=== PATIENT | female | born 1930 | race Caucasian/White ===

== ENCOUNTER 2018-09-26 09:10 | Emergency (ER) | payer MEDICARE, OTHER ==
--- NOTE | 2018-09-26 10:16 | EDM.PDOC ---
ED HPI GENERAL MEDICAL PROBLEM - General Chief Complaint: General Stated Complaint: Headache Time Seen by Provider: 09/26/18 10:10 Source of Information: Reports: Patient History Limitations: Reports: No Limitations - History of Present Illness INITIAL COMMENTS - FREE TEXT/NARRATIVE: Patient is a 8-year-old female who presents to the emergency department this morning with a complaint of migraine headache. Patient states she awoke this morning with no issues, proximally one hour after awakening, developed mild dizziness and a migraine headache. Patient does have a strong history of migraine headaches to the extent of having left upper extremity numbness and weakness. The patient's go to remedy is a shot of cyndi. This morning the patient took a shot of cyndi and had complete resolution of symptoms. Patient did contact her [id number] to let her know about the dizziness and headache and the [id number] decided to have her present to the ER. Upon presentation, patient states that migraine headache is gone, has no dizziness, no vision changes, no nausea, vomiting, or any syncopal episode. Onset: Today Onset Date: 09/26/18 Onset Time: 08:00 Duration: Minutes: Location: Reports: Head Quality: Reports: Pressure, Same as Previous Episode Severity: Mild Improves with: Reports: Other (Cyndi) Worsens with: Reports: None Context: Denies: Trauma Associated Symptoms: Reports: No Other Symptoms. Denies: Chest Pain, Cough, Diaphoresis, Fever/Chills, Nausea/Vomiting, Shortness of Breath, Syncope - Related Data Allergies Allergy/AdvReac Type Severity Reaction Status Date / Time No Known Allergies Allergy Verified 09/26/18 09:32 Home Meds: Home Meds Aspirin [Ecotrin EC] 325 mg PO DAILY PRN 06/10/17 [History] Loperamide HCl [Imodium A-D] 2 mg PO ASDIRECTED PRN 06/10/17 [History] Past Medical History HEENT History: Reports: Cataract Cardiovascular History: Reports: Other (See Below) Other Cardiovascular History: states irregular heart rhythm Gastrointestinal History: Reports: None Genitourinary History: Reports: None 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: , 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 Musculoskeletal History: Reports: Arthritis Neurological History: Reports: Migraines Psychiatric History: Reports: None Hematologic History: Reports: Blood Transfusion(s) Dermatologic History: Reports: None - Infectious Disease History Infectious Disease History: Reports: Chicken Pox, Measles, Mumps - Past Surgical History HEENT Surgical History: Reports: Cataract Surgery Cardiovascular Surgical History: Reports: None GI Surgical History: Reports: None Female Surgical History: Reports: None Neurological Surgical History: Reports: None Musculoskeletal Surgical History: Reports: None Dermatological Surgical History: Reports: None Social & Family History - Tobacco Use Smoking Status *Q: Never Smoker Second Hand Smoke Exposure: Yes - Caffeine Use Caffeine Use: Reports: Coffee, Soda, Tea - Alcohol Use Days Per Week of Alcohol Use: 7 Number of Drinks Per Day: 1 Total Drinks Per Week: 7 - Recreational Drug Use Recreational Drug Use: No ED ROS GENERAL - Review of Systems Review Of Systems: ROS reveals no pertinent complaints other than HPI. Constitutional: Reports: No Symptoms HEENT: Reports: No Symptoms Respiratory: Reports: No Symptoms Cardiovascular: Reports: No Symptoms Endocrine: Reports: No Symptoms GI/Abdominal: Reports: No Symptoms : Reports: No Symptoms Musculoskeletal: Reports: No Symptoms Skin: Reports: No Symptoms Neurological: Reports: Dizziness, Headache Psychiatric: Reports: No Symptoms Hematologic/Lymphatic: Reports: No Symptoms Immunologic: Reports: No Symptoms ED EXAM, GENERAL - Physical Exam Exam: See Below Exam Limited By: No Limitations General Appearance: Alert, WD/WN, No Apparent Distress Eye Exam: Bilateral Eye: Normal Inspection Ears: Normal External Exam, Other (Left ear canal without cerumen, TM normal. Right canal cerumen impaction. Unable to visualize TM) Ear Exam: Left Ear: Canal Normal Nose: Normal Inspection, Normal Mucosa, No Blood Throat/Mouth: Normal Inspection, Normal Oropharynx, No Airway Compromise Head: Atraumatic, Normocephalic Neck: Normal Inspection, Supple, Non-Tender, Full Range of Motion. No: Lymphadenopathy (L), Lymphadenopathy (R) Respiratory/Chest: No Respiratory Distress, Lungs Clear, Normal Breath Sounds, No Accessory Muscle Use, Chest Non-Tender Cardiovascular: Regular Rate, Rhythm, No Murmur GI/Abdominal: Normal Bowel Sounds, Soft, Non-Tender Back Exam: Normal Inspection Extremities: Normal Inspection, No Pedal Edema Neurological: Alert, Oriented, CN II-XII Intact, Normal Cognition, No Motor/ Sensory Deficits Psychiatric: Normal Affect, Normal Mood Skin Exam: Warm, Dry, Intact, Normal Color, No Rash Lymphatic: No Adenopathy Course - Vital Signs Last Recorded V/S: Last Vital Signs Temp 98.0 F 07/01/19 09:27 Pulse 94 09/26/18 09:27 Resp 18 09/26/18 09:27 BP 213/101 H 09/26/18 09:27 Pulse Ox 94 L 09/26/18 09:27 - Re-Assessments/Exams Free Text/Narrative Re-Assessment/Exam: 09/26/18 10:19 Patient afebrile, vital signs stable, other than blood pressure 184/80. Patient currently not on any antihypertensive meds. Patient will follow-up tomorrow with Annabel. Discussed situation. In depth with [id number] and granddaughter. 09/26/18 10:26 Departure - Departure Time of Disposition: 10:27 Disposition: Home, Self-Care 01 Condition: Good Clinical Impression: Migraine headache Qualifiers: Migraine type: without aura Status migrainosus presence: without status migrainosus Intractability: not intractable Qualified Code(s): G43.009 - Migraine without aura, not intractable, without status migrainosus Hypertension Qualifiers: Hypertension type: unspecified Qualified Code(s): I10 - Essential (primary) hypertension - Discharge Information Instructions: Recurrent Migraine Headache, [id number], Hypertension, Easy-to- Read Referrals: Annabel Garcia PA-C [Primary Care Provider] - Additional Instructions: Follow up with Annabel tomorrow. Return to emergency department sooner if symptoms continue or worsen. - Assessment/Plan Assessment:: Migraine headache, hypertension Plan: Follow up with Annabel tomorrow
== END 2018-09-26 10:30 | disposition home or self-care (01) ==
LOC: KA.ED 09:10
DX: G43.009 Migraine without aura, not intractable, without status migrainosus (principal); I10 Essential (primary) hypertension; Z79.82 Long term (current) use of aspirin
CPT/HCPCS: 99283

== ENCOUNTER 2018-09-28 14:50 | Emergency (ER) | payer MEDICARE, OTHER ==
--- NOTE | 2018-09-28 15:37 | EDM.PDOC ---
ED HPI GENERAL MEDICAL PROBLEM - General Chief Complaint: General Stated Complaint: LOW BLOOD PRESSURE, MIGRAINE HEADACHE Time Seen by Provider: 09/28/18 15:23 Source of Information: Reports: Patient History Limitations: Reports: No Limitations - History of Present Illness Onset: Gradual Severity: Mild Improves with: Reports: None Worsens with: Reports: None Associated Symptoms: Denies: Chest Pain, Diaphoresis, Fever/Chills, Headaches, Nausea/Vomiting, Shortness of Breath - Related Data Allergies Allergy/AdvReac Type Severity Reaction Status Date / Time No Known Allergies Allergy Verified 09/28/18 15:28 Home Meds: Home Meds Aspirin [Ecotrin EC] 325 mg PO DAILY PRN 06/10/17 [History] Loperamide HCl [Imodium A-D] 2 mg PO ASDIRECTED PRN 06/10/17 [History] Past Medical History HEENT History: Reports: Cataract Cardiovascular History: Reports: Other (See Below) Other Cardiovascular History: states irregular heart rhythm Gastrointestinal History: Reports: None Genitourinary History: Reports: None 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: , 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 Musculoskeletal History: Reports: Arthritis Neurological History: Reports: Migraines Psychiatric History: Reports: None Hematologic History: Reports: Blood Transfusion(s) Dermatologic History: Reports: None - Infectious Disease History Infectious Disease History: Reports: Chicken Pox, Measles, Mumps - Past Surgical History HEENT Surgical History: Reports: Cataract Surgery Cardiovascular Surgical History: Reports: None GI Surgical History: Reports: None Female Surgical History: Reports: None Neurological Surgical History: Reports: None Musculoskeletal Surgical History: Reports: None Dermatological Surgical History: Reports: None Social & Family History - Caffeine Use Caffeine Use: Reports: Coffee, Soda, Tea ED ROS GENERAL - Review of Systems Review Of Systems: ROS reveals no pertinent complaints other than HPI. Constitutional: Reports: No Symptoms HEENT: Reports: No Symptoms Respiratory: Reports: No Symptoms Cardiovascular: Reports: Blood Pressure Problem, Other (Patient thought she was bradycardic) Endocrine: Reports: No Symptoms GI/Abdominal: Reports: No Symptoms : Reports: No Symptoms Musculoskeletal: Reports: No Symptoms Skin: Reports: No Symptoms Neurological: Reports: No Symptoms Psychiatric: Reports: No Symptoms Hematologic/Lymphatic: Reports: No Symptoms Immunologic: Reports: No Symptoms ED EXAM, GENERAL - Physical Exam Exam: See Below Exam Limited By: No Limitations General Appearance: Alert, WD/WN, No Apparent Distress Eye Exam: Bilateral Eye: Normal Inspection Ears: Normal External Exam, Normal Canal, Normal TMs Nose: Normal Inspection, Normal Mucosa, No Blood Throat/Mouth: Normal Inspection, Normal Oropharynx, No Airway Compromise Head: Atraumatic, Normocephalic Neck: Normal Inspection, Supple, Non-Tender Respiratory/Chest: No Respiratory Distress, Lungs Clear, Normal Breath Sounds, No Accessory Muscle Use, Chest Non-Tender Cardiovascular: Normal Peripheral Pulses, Regular Rate, Rhythm, No Murmur, No Rub, Other (No carotid bruit) GI/Abdominal: Normal Bowel Sounds, Soft, Non-Tender Back Exam: Normal Inspection. No: CVA Tenderness (L), CVA Tenderness (R) Extremities: Normal Inspection, No Pedal Edema Neurological: Alert, Oriented, CN II-XII Intact, Normal Cognition, No Motor/ Sensory Deficits Psychiatric: Normal Affect, Anxious Skin Exam: Warm, Dry, Intact, Normal Color, No Rash EKG INTERPRETATION EKG Date: 09/28/18 Time: 15:40 Rhythm: NSR Rate (Beats/Min): 87 [place]: Normal P-Wave: Present QRS: Normal ST-T: Normal QT: Normal Comparison: No Change Course - Vital Signs Last Recorded V/S: Last Vital Signs Temp 98.6 F 09/28/18 15:13 Pulse 88 09/28/18 15:13 Resp 20 09/28/18 15:13 BP 210/97 H 09/28/18 15:13 Pulse Ox 96 09/28/18 15:13 - Re-Assessments/Exams Free Text/Narrative Re-Assessment/Exam: 09/28/18 15:48 Patient afebrile, vital signs stable, multiple blood pressure on bilateral upper extremities show 170s over 80s. Heart rate consistent in the low 80s. EKG shows normal sinus rhythm with heart rate of 87. Patient does have issues with anxiety, and this could be attributed to symptoms of migraine and concern for heart rate as presented. Blood pressure at clinic yesterday was 130s over 80s. Suspicion for whitecoat hypertension in ER. No treatment at this time as the patient is asymptomatic. Patient will follow-up with PCP for reevaluation of blood pressure concern. 09/28/18 15:49 09/28/18 15:54 Departure - Departure Time of Disposition: 15:51 Disposition: Home, Self-Care 01 Condition: Good Clinical Impression: Anxiety Hypertension Qualifiers: Hypertension type: unspecified Qualified Code(s): I10 - Essential (primary) hypertension Migraine headache Qualifiers: Migraine type: without aura Status migrainosus presence: without status migrainosus Intractability: not intractable Qualified Code(s): G43.009 - Migraine without aura, not intractable, without status migrainosus - Discharge Information Instructions: Preventing Hypertension, Recurrent Migraine Headache, Easy-to- Read, How to Take Your Blood Pressure, [id number], Hypertension, [id number] , Panic Attack, [id number] Referrals: Annabel Garcia PA-C [Primary Care Provider] - Additional Instructions: Follow up with Annabel in the next 2-3 days. Return to emergency department sooner if conditions continue or worsen - Assessment/Plan Assessment:: Hypertension Plan: Follow-up with PCP
== END 2018-09-28 16:15 | disposition home or self-care (01) ==
LOC: KA.ED 14:50
DX: G43.009 Migraine without aura, not intractable, without status migrainosus (principal); F41.9 Anxiety disorder, unspecified; I10 Essential (primary) hypertension; Z79.82 Long term (current) use of aspirin
CPT/HCPCS: 93005; 99283-25

== ENCOUNTER 2018-11-01 11:10 | Emergency (ER) | payer MEDICARE, OTHER ==
--- NOTE | 2018-11-01 12:20 | EDM.PDOC ---
ED HPI GENERAL MEDICAL PROBLEM - General Chief Complaint: General Stated Complaint: VISION Time Seen by Provider: 11/01/18 12:13 Source of Information: Reports: Patient History Limitations: Reports: No Limitations - History of Present Illness INITIAL COMMENTS - FREE TEXT/NARRATIVE: Patient is a 88-year-old female who presents to the emergency department this afternoon with a complaint of anxiety. Patient states at approximately 1 a.m. this morning she woke and was concerned because she had blurry vision. Patient states that she tried to go back to sleep by reading a book and follow-up at the sleep at approximately 430. Patient woke again at 8 o'clock in the morning with similar symptoms and a headache and contacted her granddaughter. Granddaughter contacted the [facility] and was recommended to present to the ER. Upon presentation, patient states that her headache has resolved and thinks that this is brought on by anxiety. Patient does have macular degeneration and is currently seeing an assistant community director. Patient denies facial or extremity numbness, chest pain, shortness of breath, nausea, vomiting, diarrhea, fever, or any trauma. Onset: Today Onset Date: 11/01/18 Onset Time: 01:00 Duration: Resolved Prior to Arrival Improves with: Reports: Other (Spontaneously) Worsens with: Reports: Other (Anxiety) Associated Symptoms: Reports: No Other Symptoms. 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 DISTRICT MANAGER: Reports: Other Medication(s) Other Treatments RESTAURANT DISTRICT MANAGER: cyndi Bruno - Related Data Allergies Allergy/AdvReac Type Severity Reaction Status Date / Time No Known Allergies Allergy Verified 11/01/18 11:35 Home Meds: Home Meds Aspirin [Ecotrin EC] 325 mg PO DAILY PRN 06/10/17 [History] Loperamide HCl [Imodium A-D] 2 mg PO ASDIRECTED PRN 06/10/17 [History] Past Medical History HEENT History: Reports: Cataract, Macular Degeneration Cardiovascular History: Reports: Other (See Below) Other Cardiovascular History: states irregular heart rhythm Gastrointestinal History: Reports: None Genitourinary History: Reports: None 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: , 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 Musculoskeletal History: Reports: Arthritis Neurological History: Reports: Migraines Psychiatric History: Reports: None Hematologic History: Reports: Blood Transfusion(s) Dermatologic History: Reports: None - Infectious Disease History Infectious Disease History: Reports: Chicken Pox, Measles, Mumps - Past Surgical History HEENT Surgical History: Reports: Cataract Surgery Cardiovascular Surgical History: Reports: None GI Surgical History: Reports: None Female Surgical History: Reports: None Neurological Surgical History: Reports: None Musculoskeletal Surgical History: Reports: None Dermatological Surgical History: Reports: None Social & Family History - Tobacco Use Smoking Status *Q: Never Smoker Second Hand Smoke Exposure: Yes - Caffeine Use Caffeine Use: Reports: Coffee, Soda - Alcohol Use Days Per Week of Alcohol Use: 7 Number of Drinks Per Day: 1 Total Drinks Per Week: 7 - Recreational Drug Use Recreational Drug Use: No ED ROS GENERAL - Review of Systems Review Of Systems: ROS reveals no pertinent complaints other than HPI. Constitutional: Reports: No Symptoms HEENT: Reports: Vision Change Respiratory: Reports: No Symptoms Cardiovascular: Reports: No Symptoms Endocrine: Reports: No Symptoms GI/Abdominal: Reports: No Symptoms : Reports: No Symptoms Musculoskeletal: Reports: No Symptoms Skin: Reports: No Symptoms Neurological: Reports: No Symptoms Psychiatric: Reports: Anxiety Hematologic/Lymphatic: Reports: No Symptoms Immunologic: Reports: No Symptoms ED EXAM, GENERAL - Physical Exam Exam: See Below Exam Limited By: No Limitations General Appearance: Alert, WD/WN, No Apparent Distress Eye Exam: Bilateral Eye: Normal Inspection Nose: Normal Inspection, Normal Mucosa, No Blood Throat/Mouth: Normal Inspection, Normal Oropharynx, No Airway Compromise Head: Atraumatic, Normocephalic Neck: Normal Inspection Respiratory/Chest: No Respiratory Distress Cardiovascular: Regular Rate, Rhythm, No Murmur GI/Abdominal: Normal Bowel Sounds, Soft, Non-Tender Extremities: Normal Inspection Neurological: Alert, Oriented, CN II-XII Intact, Normal Cognition, No Motor/ Sensory Deficits Psychiatric: Normal Affect, Normal Mood Skin Exam: Warm, Dry, Intact, Normal Color, No Rash Course - Vital Signs Last Recorded V/S: Last Vital Signs Temp 98.1 F 11/01/18 11:32 Pulse 87 11/01/18 11:32 Resp 20 11/01/18 11:32 BP 156/82 H 11/01/18 11:32 Pulse Ox 93 L 11/01/18 11:32 - Re-Assessments/Exams Free Text/Narrative Re-Assessment/Exam: 11/01/18 12:21 Patient afebrile, vital signs stable, nontoxic appearing, denies any headache at this time. Granddaughter is at bedside. Granddaughter spoke to Annabel Garcia at the [facility] and suggested that she will prescribe a anxiety medication for her. Patient will follow up with Annabel. Departure - Departure Time of Disposition: 12:22 Disposition: Home, Self-Care 01 Condition: Good Clinical Impression: Anxiety - Discharge Information Instructions: Panic Attack, [id number], Generalized Anxiety Disorder, Adult Referrals: Annabel Garcia PA-C [Primary Care Provider] - Additional Instructions: Follow up with Annabel as planned Return to emergency room sooner if symptoms continue or worsen. - Assessment/Plan Assessment:: Anxiety Plan: Follow-up at the [facility]
== END 2018-11-01 12:30 | disposition home or self-care (01) ==
LOC: KA.ED 11:10
DX: F41.9 Anxiety disorder, unspecified (principal); Z79.82 Long term (current) use of aspirin; Z79.899 Other long term (current) drug therapy; Z77.22 Contact with and (suspected) exposure to environmental tobacco smoke (acute) (chronic)
CPT/HCPCS: 99282; 99284

== ENCOUNTER 2018-11-01 16:45 | Emergency (ER) | payer MEDICARE, OTHER ==
[2018-11-01] MEDS ORDERED: Sodium Chloride 0.9% 10 ML Syringe FLUSH PRN (17:08)
--- NOTE | 2018-11-01 17:26 | EDM.PDOC ---
ED HPI GENERAL MEDICAL PROBLEM - General Chief Complaint: Neuro Symptoms/Deficits Stated Complaint: right side weakness Time Seen by Provider: 11/01/18 17:01 Source of Information: Reports: Patient, Family (Granddaughter in law) History Limitations: Reports: No Limitations - History of Present Illness INITIAL COMMENTS - FREE TEXT/NARRATIVE: Patient's an 88-year-old female who presents to the emergency department via private vehicle and has a complaint of weakness of right upper and lower extremities. Patient was seen in the emergency department this morning for anxiety and discharged. She was prescribed by her provider Xanax 0.25 mg. Patient took medication at approximately 1500 today and at 1530 today while sitting on the couch with family members, became weak, had stool incontinence and could not move right upper and lower extremities. Patient was carried into the bathroom by her grandson. Patient was cleaned up and then brought to the emergency department via private vehicle. Upon presentation, patient did not exhibit facial droop, however, obvious motor function deficit of right upper extremity and more so right lower extremity. At this time, patient denies chest pain, shortness of breath, headache, blurry vision, nausea or vomiting, difficulty speaking or swallowing, numbness in face or extremities. Onset: Today, Sudden Onset Date: 11/01/18 Onset Time: 15:30 Duration: Hour(s): Location: Reports: Upper Extremity, Right, Lower Extremity, Right Quality: Reports: Other (Numbness) Improves with: Reports: Other (Spontaneously) Worsens with: Reports: None Context: Reports: Other (While at rest). Denies: Trauma - Related Data Allergies Allergy/AdvReac Type Severity Reaction Status Date / Time No Known Allergies Allergy Verified 11/01/18 11:35 Home Meds: Home Meds Aspirin [Ecotrin EC] 325 mg PO DAILY PRN 06/10/17 [History] Loperamide HCl [Imodium A-D] 2 mg PO ASDIRECTED PRN 06/10/17 [History] ALPRAZolam [Alprazolam] 0.125 - 0.25 mg PO TID PRN 11/01/18 [History] Past Medical History HEENT History: Reports: Cataract, Macular Degeneration Cardiovascular History: Reports: Other (See Below) Other Cardiovascular History: states irregular heart rhythm Gastrointestinal History: Reports: None Genitourinary History: Reports: None 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: , 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 Musculoskeletal History: Reports: Arthritis Neurological History: Reports: Migraines Psychiatric History: Reports: None Hematologic History: Reports: Blood Transfusion(s) Dermatologic History: Reports: None - Infectious Disease History Infectious Disease History: Reports: Chicken Pox, Measles, Mumps - Past Surgical History HEENT Surgical History: Reports: Cataract Surgery Cardiovascular Surgical History: Reports: None GI Surgical History: Reports: None Female Surgical History: Reports: None Neurological Surgical History: Reports: None Musculoskeletal Surgical History: Reports: None Dermatological Surgical History: Reports: None Social & Family History - Caffeine Use Caffeine Use: Reports: Coffee, Soda ED ROS GENERAL - Review of Systems Review Of Systems: ROS reveals no pertinent complaints other than HPI. Constitutional: Reports: Weakness HEENT: Reports: No Symptoms Respiratory: Reports: No Symptoms Cardiovascular: Reports: No Symptoms Endocrine: Reports: No Symptoms GI/Abdominal: Reports: Stool Incontinence : Reports: No Symptoms Musculoskeletal: Reports: No Symptoms Skin: Reports: No Symptoms Neurological: Reports: Difficulty Walking, Weakness. Denies: Trouble Speaking, Change in Speech Psychiatric: Reports: No Symptoms Hematologic/Lymphatic: Reports: No Symptoms Immunologic: Reports: No Symptoms ED EXAM, NEURO - Physical Exam Exam: See Below Exam Limited By: No Limitations General Appearance: Alert, WD/WN, No Apparent Distress Eye Exam: Bilateral Eye: Normal Inspection Nose: Normal Inspection, No Blood Throat/Mouth: Normal Inspection, Normal Oropharynx, No Airway Compromise Head Exam: Atraumatic, Normocephalic Neck: Normal Inspection, Supple, Non-Tender Respiratory/Chest: No Respiratory Distress, Lungs Clear, Normal Breath Sounds, No Accessory Muscle Use, Chest Non-Tender Cardiovascular: Regular Rate, Rhythm, No Murmur GI/Abdominal: Soft, Non-Tender, No Organomegaly, No Distention, No Abnormal Bruit, No Mass Neurological: Alert, Oriented x 3, Abnormal Sensation (Right lower extremity), Abnormal Motor (Right lower extremity), Abn 2 Pt Discrimination (Right lower extremity), Straight Leg Raise (R) (Obvious strength deficit of right lower extremity compared to left). No: Normal Dorsiflexion Back Exam: Normal Inspection Extremities: No Pedal Edema, Normal Capillary Refill Psychiatric: Normal Affect, Normal Mood Skin Exam: Warm, Dry, Intact, Normal Color, No Rash EKG INTERPRETATION EKG Date: 11/01/18 Time: 17:25 Rhythm: NSR Rate (Beats/Min): 77 [place]: Normal P-Wave: Present QRS: Normal ST-T: Normal QT: Normal Comparison: No Change Course - Vital Signs Last Recorded V/S: Last Vital Signs Temp 99.1 F 11/01/18 17:29 Pulse 88 11/01/18 18:17 Resp 21 H 11/01/18 18:17 BP 157/60 H 11/01/18 18:17 Pulse Ox 96 11/01/18 18:17 - Orders/Labs/Meds Orders: Active Orders 24 hr Category Date Time Status EKG Documentation Completion [RC] ASDIRECTED Care 11/01/18 17:09 Ordered Peripheral IV Care [RC] . DIRECTED Care 11/01/18 17:09 Active Sodium Chloride 0.9% [Saline Flush] Med 11/01/18 17:08 Ordered 10 ml FLUSH Q8HR PRN Peripheral IV Insertion Adult [OM.PC] Routine Oth 11/01/18 17:08 Ordered EKG 12 Lead [EK] Routine Ther 11/01/18 17:08 Ordered Medication Orders Sodium Chloride (Saline Flush) 10 ml FLUSH Q8HR PRN PRN Reason: keep vein open Labs: Laboratory Tests 11/01/18 11/01/18 11/01/18 Range/Units 07:15 07:15 07:15 WBC 6.64 (5.00-10.00) 10^3/uL RBC 4.42 (3.80-5.50) 10^6/uL Hgb 14.2 (12.0-16.0) g/dL Hct 42.0 (37.0-47.0) % MCV 95.0 H D (82.0-92.0) fL MCH 32.1 H (27.0-31.0) pg MCHC 33.8 (32.0-36.0) g/dL RDW 12.6 (11.5-14.5) % Plt Count 272 (150-400) 10^3/uL MPV 8.8 (7.4-10.4) fL Immature Gran % (Auto) 0.3 (0.0-5.0) % Neut % (Auto) 75.5 H (50.0-70.0) % Lymph % (Auto) 10.2 L (20.0-40.0) % Wirt % (Auto) 13.1 H (2.0-8.0) % Eos % (Auto) 0.3 L (1.0-3.0) % Baso % (Auto) 0.6 (0.0-1.0) % Immature Gran # (Auto) 0.02 (0.00-0.50) 10^3/uL Neut # (Auto) 5.01 (2.50-7.00) 10^3/uL Lymph # (Auto) 0.68 L (1.00-4.00) 10^3/uL Wirt # (Auto) 0.87 H (0.10-0.80) 10^3/uL Eos # (Auto) 0.02 L (0.10-0.30) 10^3/uL Baso # (Auto) 0.04 (0.00-0.10) 10^3/uL PT 9.9 (8.9-11.4) SEC INR 1.0 (0.9-1.1) APTT 22.7 L (23.1-31.9) SEC Sodium 144 (136-145) mmol/L Potassium 3.6 (3.3-5.3) mmol/L Chloride 106 (98-115) mmol/L Carbon Dioxide 25.4 (21.0-32.0) mmol/L Anion Gap 16.2 H (5-15) mmol/L BUN 14 (6-25) mg/dL Creatinine 0.99 (0.51-1.17) mg/dL Est Cr Clr Drug Dosing 30.78 mL/min Estimated GFR (MDRD) 53 mL/min Glucose 109 H (75 - 99) mg/dL Calcium 9.3 (8.7-10.3) mg/dL Total Bilirubin 1.0 (0.2-1.0) mg/dL AST 19 (15-37) U/L ALT 16 (12-78) U/L Alkaline Phosphatase 95 (46-116) IU/L Troponin I < 0.04 (0.00-0.070) ng/mL Total Protein 7.1 (6.4-8.2) g/dL Albumin 3.85 (3.00-4.80) g/dL Meds: Medications Generic Name Dose Route Start Last Admin Trade Name Freq PRN Reason Stop Dose Admin Sodium Chloride 10 ml 11/01/18 17:08 Saline Flush FLUSH Q8HR PRN keep vein open - Radiology Interpretation Free Text/Narrative:: CT head shows no acute intracranial process. Chest x-ray shows no acute cardiopulmonary process - Re-Assessments/Exams Free Text/Narrative Re-Assessment/Exam: 11/01/18 18:14 Patient afebrile, vital signs stable, denies headache, blurry vision, chest pain , shortness of breath. Patient displays no neuro focal deficits, communicates appropriately, but has minimal right lower extremity weakness. Discussed case in length with Dr. Olea, neurologist at [facility]. Discussion of TPA administration for possible stroke. Patient symptoms were clearing spontaneously, first right upper extremity improved greatly then right lower extremity gradually improved. Based on this decision TPA was held, but transfer was advised. Discussed case with Dr. Isaac, hospitalist at [facility]. He accepted transfer of patient via EMS ground ambulance for continued care. Family member at bedside. Departure - Departure Time of Disposition: 18:19 Disposition: DC/Tfer to [facility] 02 Condition: Fair Clinical Impression: Weakness of extremity, Stroke determined by clinical assessment, Stroke-like symptom - Discharge Information Referrals: Annabel Garcia PA-C [Primary Care Provider] - Forms: ED Department Discharge, Interfacility Transfer EMTALA - My Orders Last 24 Hours: My Active Orders 11/01/18 17:08 Sodium Chloride 0.9% [Saline Flush] 10 ml FLUSH Q8HR PRN Peripheral IV Insertion Adult [OM.PC] Routine EKG 12 Lead [EK] Routine 11/01/18 17:09 EKG Documentation Completion [RC] ASDIRECTED Peripheral IV Care [RC] . DIRECTED - Assessment/Plan Last 24 Hours: My Active Orders 11/01/18 17:08 Sodium Chloride 0.9% [Saline Flush] 10 ml FLUSH Q8HR PRN Peripheral IV Insertion Adult [OM.PC] Routine EKG 12 Lead [EK] Routine 11/01/18 17:09 EKG Documentation Completion [RC] ASDIRECTED Peripheral IV Care [RC] . DIRECTED Assessment:: Stroke symptoms Plan: Transferred to [facility]
--- NOTE | 2018-11-01 17:35 | CT ---
[id number] CT/CT Head Stroke Protocol EXAM: CT Head Stroke Protocol CLINICAL DATA: ALTERED MENTAL STATUS. COMPARISON STUDY: September 27, 2018 FINDINGS: No intracranial hemorrhage, extra-axial fluid collection, mass, or acute ischemia. Generalized parenchymal atrophy with scattered areas of nonspecific white matter disease, commonly seen as sequela of chronic microvascular ischemia. Soft tissues are unremarkable. Paranasal sinuses and mastoid air cells are clear. IMPRESSION: No acute intracranial findings. Alexx Bell DO 11/01/18 1734 Thank you for allowing us to participate in the care of your patient.
--- NOTE | 2018-11-01 17:42 | CR ---
[id number] RAD/RAD Chest PA or AP 1V EXAM: RAD Chest PA or AP 1V INDICATION: AMS. COMPARISON: June 10, 2017. DISCUSSION: Apparent mediastinal widening is likely related to technique and patient positioning. No infiltrate, effusion, pneumothorax, or edema. Pulmonary hyperinflation. IMPRESSION: No definite acute cardiopulmonary findings. Alexx Bell DO 11/01/18 1742 Thank you for allowing us to participate in the care of your patient.
[2018-11-01 17:50] LABS: ANION GAP 16.2 mmol/L (5-15); CHLORIDE,CL 106 mmol/L (98-115); SODIUM,NA 144 mmol/L (136-145)
== END 2018-11-01 18:50 ==
LOC: KA.ED 16:45
DX: M62.81 Muscle weakness (generalized) (principal); Z79.82 Long term (current) use of aspirin; Z79.899 Other long term (current) drug therapy; F41.9 Anxiety disorder, unspecified; Z77.22 Contact with and (suspected) exposure to environmental tobacco smoke (acute) (chronic); R41.82 Altered mental status, unspecified
CPT/HCPCS: 36415; 70450; 71045; 80053; 84484; 85025; 85610; 85730; 93005; 99282; 99284; 99285-25

== ENCOUNTER 2020-03-11 17:45 | Emergency (ER) | payer MEDICARE, OTHER ==
--- NOTE | 2020-03-11 18:53 | CT ---
[id number] CT/CT Head WO IV EXAM: CT Head WO IV CLINICAL DATA: FALL,HEAD INJURY. COMPARISON STUDY: None FINDINGS: No intracranial hemorrhage, extra-axial fluid collection, mass, or acute ischemia. Generalized parenchymal atrophy with scattered areas of nonspecific white matter disease, commonly seen as sequela of chronic microvascular ischemia. Right parietal scalp hematoma without underlying calvarial fracture. Paranasal sinuses and mastoid air cells are clear. IMPRESSION: No acute intracranial findings. Alexx Bell DO 03/11/20 1318 Thank you for allowing us to participate in the care of your patient.
[2020-03-11] MEDS ORDERED: Diphtheria,Pertussis(Acell),Tetanus Vaccine 0.5 ML SDV IM ONE (18:56)
[2020-03-11] MEDS ORDERED: Lidocaine 1% with EPINEPHrine 1:100,000 20 ML MDV ONE (19:04)
[2020-03-11] MEDS ORDERED: Lidocaine 1% with EPINEPHrine 1:100,000 20 ML MDV INJECT ONE (19:05)
--- NOTE | 2020-03-11 19:28 | EDM.PDOC ---
ED HPI GENERAL MEDICAL PROBLEM - General Chief Complaint: Head Injury Stated Complaint: FAINTED/HEAD LACERATION Time Seen by Provider: 03/11/20 18:37 Source of Information: Reports: Patient, Provider History Limitations: Reports: No Limitations - History of Present Illness INITIAL COMMENTS - FREE TEXT/NARRATIVE: Patient presents with laceration to back of head from a fall at the NH when she was walking to supper. She doesn't remember the incident but was told she hit her head on the laundry room door. She had some nausea but better now. She denies double or blurry vision, vomiting, neck pain. She takes Xarelto for prophylaxis since her stroke. She thinks she sometimes has A Fib. Posterior Head Pain Score (Numeric/FACES): 4 - Related Data Allergies Allergy/AdvReac Type Severity Reaction Status Date / Time No Known Allergies Allergy Verified 03/11/20 18:26 Home Meds: Home Meds Loperamide HCl [Imodium A-D] 2 mg PO ASDIRECTED PRN 06/10/17 [History] Acetaminophen 650 mg PO Q4H PRN 03/11/20 [History] Carboxymethylcellulose Sodium [Refresh Plus 0.5% Ophth Soln] 1 drop EYEBOTH BID 03/11/20 [History] Cholecalciferol (Vitamin D3) [Vitamin D3] 2,000 unit PO DAILY 03/11/20 [History] Citalopram Hydrobromide [Celexa] 20 mg PO DAILY 03/11/20 [History] Rivaroxaban [Xarelto] 15 mg PO DAILY 03/11/20 [History] amLODIPine Besylate [Amlodipine Besylate] 5 mg PO DAILY 03/11/20 [History] atorvaSTATin Calcium [Atorvastatin Calcium] 40 mg PO BEDTIME 03/11/20 [History] busPIRone [Buspar] 2.5 mg PO DAILY 03/11/20 [History] busPIRone [Buspar] 5 mg PO DAILY 03/11/20 [History] Past Medical History HEENT History: Reports: Cataract, Macular Degeneration Cardiovascular History: Reports: Afib, High Cholesterol, Hypertension, Other (See Below) Other Cardiovascular History: states irregular heart rhythm Gastrointestinal History: Reports: None Genitourinary History: Reports: None 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: , 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 Musculoskeletal History: Reports: Arthritis Neurological History: Reports: Concussion, Head Trauma, Migraines Psychiatric History: Reports: Anxiety Endocrine/Metabolic History: Reports: Vitamin D Deficiency Hematologic History: Reports: Blood Transfusion(s) Dermatologic History: Reports: None - Infectious Disease History Infectious Disease History: Reports: Chicken Pox, Measles, Mumps - Past Surgical History HEENT Surgical History: Reports: Cataract Surgery Cardiovascular Surgical History: Reports: None GI Surgical History: Reports: None Female Surgical History: Reports: None Neurological Surgical History: Reports: None Musculoskeletal Surgical History: Reports: None Dermatological Surgical History: Reports: None Social & Family History - Family History Family Medical History: No Pertinent Family History - Tobacco Use Tobacco Use Status *Q: Never Tobacco User Second Hand Smoke Exposure: No - Caffeine Use Caffeine Use: Reports: Coffee, Soda - Recreational Drug Use Recreational Drug Use: No ED ROS GENERAL - Review of Systems Review Of Systems: See Below Constitutional: Denies: Fever, Chills, Malaise, Weakness HEENT: Denies: Ear Discharge, Ear Pain, Vision Change Respiratory: Denies: Shortness of Breath, Cough Cardiovascular: Denies: Chest Pain, Lightheadedness, Syncope GI/Abdominal: Denies: Abdominal Pain, Diarrhea, Vomiting : Reports: No Symptoms Musculoskeletal: Denies: Neck Pain, Shoulder Pain, Arm Pain, Back Pain, Hand Pain, Leg Pain, Foot Pain Skin: Denies: Cyanosis, Jaundice, Mottled, Pallor, Diaphoresis Neurological: Denies: Confusion, Dizziness, Headache, Seizure, Syncope Psychiatric: Denies: Agitation, Anxiety, Confusion Hematologic/Lymphatic: Reports: Easy Bleeding ED EXAM, HEAD INJURY - Physical Exam Exam: See Below Exam Limited By: No Limitations General Appearance: Alert, WD/WN, No Apparent Distress Head: Normocephalic, Scalp Lacerations, Scalp Hematoma, Active Bleeding. No: Scalp Swelling, Scalp Abrasions, Scalp Ecchymosis, Scalp Tenderness, Gandhi's Sign, Flap, Facial Abrasions, Facial Ecchymosis, Facial Lacerations, Facial Swelling, Raccoon Eyes Nexus Criteria: No: Posterior, Midline Cervical Tenderness, Evidence of Intoxication, Altered Level of Consciousness, Focal Neurological Deficit, Painful Distraction Injuries Eyes: Bilateral Eye: EOMI, Normal Inspection, PERRL Ears: Normal External Exam, Normal Canal, Hearing Grossly Normal, Normal TMs Nose: Normal Inspection, No Blood Throat/Mouth: Normal Inspection, Normal Lips, Normal Voice, No Airway Compromise Neck: Non-Tender, Normal Alignment, Normal Inspection, Limited Range of Motion (chronic). No: Painful Range of Motion, Paraspinous Muscle Tender, Spinous Processes Tender, Tenderness, Tender Midline Respiratory: No Respiratory Distress, Lungs Clear, Normal Breath Sounds, No Accessory Muscle Use Cardiovascular: Regular Rate, Rhythm (very regular today) GI/Abdominal Exam: Soft, Non-Tender Back Exam: Normal Inspection, Full Range of Motion. 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 Tested, No Motor/Sensory Deficits, Alert, Normal Mood/Affect, Oriented x 3 Skin: Normal Color, Warm/Dry - Kaiden Coma Score Best Eye Response (Kaiden): (4) Open Spontaneously Best Verbal Response (Curtis): (5) Oriented Best Motor Response (Kaiden): (6) Obeys Commands ED LACERATION/WOUND & CALLIE PROC - Laceration/Wound Repair Posterior Head Lac/wound length in cm: 4 Appearance: Subcutaneous, Stellate, Clean Distal NVT: Neuro & Vascular Intact Anesthetic Type: Local Local Anesthesia - Lidocaine (Xylocaine): 1% with EPI Local Anesthetic Volume: 5cc Skin Prep: Chlorhexidine (Hibiciens) Exploration/Debridement/Repair: Wound Explored Closed with: Louis # of Sutures: 7 Tetanus Status Addressed: Yes Complications: No Course - Vital Signs Last Recorded V/S: Last Vital Signs Temp 98.6 F 03/11/20 18:48 Pulse 61 03/11/20 18:48 Resp 16 03/11/20 18:48 BP 141/64 H 03/11/20 18:48 Pulse Ox 97 03/11/20 18:48 - Orders/Labs/Meds Orders: Active Orders 24 hr Category Date Time Status Vaccines to be Administered [RC] PER UNIT ROUTINE Care 03/11/20 18:56 Active Meds: Medications Discontinued Medications Generic Name Dose Route Start Last Admin Trade Name Freq PRN Reason Stop Dose Admin Diphtheria/Tetanus/Acell Pertussis 0.5 ml 03/11/20 18:56 03/11/20 18:59 Adacel IM 03/11/20 18:57 0.5 ml .ONCE ONE Administration Lidocaine/Epinephrine 20 ml 03/11/20 19:05 03/11/20 19:05 Xylocaine 1% With Epinephrine 1:100,000 INJECT 03/11/20 19:06 5.5 ml ONETIME ONE Administration Lidocaine/Epinephrine Confirm 03/11/20 19:04 03/11/20 19:09 Xylocaine 1% With Epinephrine 1:100,000 Administered 03/11/20 19:05 Not Given Dose 20 ml .ROUTE .[facility] ONE - Re-Assessments/Exams Free Text/Narrative Re-Assessment/Exam: 03/11/20 19:30 TDAP given. Discussed findings and treatment plan with patient. Sterile technique was used to approximate and close wound with louis as above. Head CT is negative for bleed or acute pathology. Patient discharged back to [place] in stable condition. Departure - Departure Time of Disposition: 19:21 Disposition: DC/Tfer to [facility] 03 Condition: Good Clinical Impression: Laceration of scalp without complication Qualifiers: Encounter type: initial encounter Qualified Code(s): S01.01XA - Laceration without foreign body of scalp, initial encounter - Discharge Information Instructions: Sutures, Louis, or Adhesive Wound Closure Additional Instructions: Keep wound clean. May wash under fresh running water but no bathing with head submerged until louis are removed. Recheck with PCP if any sign of infection or other symptom change. See PCP in 10-12 days for staple removal. Sepsis Event Note (ED) - Evaluation Sepsis Screening Result: No Definite Risk - Focused Exam Vital Signs: Vital Signs Temp Pulse Resp BP Pulse Ox 03/11/20 18:48 98.6 F 61 16 141/64 H 97 03/11/20 17:53 98.4 F 67 16 161/71 H 99 - My Orders Last 24 Hours: My Active Orders 03/11/20 18:56 Vaccines to be Administered [RC] PER UNIT ROUTINE - Assessment/Plan Last 24 Hours: My Active Orders 03/11/20 18:56 Vaccines to be Administered [RC] PER UNIT ROUTINE
== END 2020-03-11 19:35 ==
LOC: KA.ED 17:45
DX: S01.01XA Laceration without foreign body of scalp, initial encounter (principal); I10 Essential (primary) hypertension; E78.00 Pure hypercholesterolemia, unspecified; I48.91 Unspecified atrial fibrillation; F41.9 Anxiety disorder, unspecified; Z23 Encounter for immunization; Z79.899 Other long term (current) drug therapy; W01.10XA Fall on same level from slipping, tripping and stumbling with subsequent striking against unspecified object, initial encounter; Y92.129 Unspecified place in nursing home as the place of occurrence of the external cause
CPT/HCPCS: 12002; 70450; 90471; 90715; 99284; 99284-25

== ENCOUNTER 2021-11-04 04:11 | Emergency (ER) | payer MEDICARE, OTHER ==
[2021-11-04] MEDS ORDERED: Acetaminophen 325 MG Tab PO ONE (05:09)
[2021-11-04 05:47] VITALS: BP 137/68; PULSE 62
== END 2021-11-04 06:00 ==
LOC: KA.ED 04:11
DX: S05.11XA Contusion of eyeball and orbital tissues, right eye, initial encounter (principal); S50.02XA Contusion of left elbow, initial encounter; S70.12XA Contusion of left thigh, initial encounter; I48.91 Unspecified atrial fibrillation; E78.00 Pure hypercholesterolemia, unspecified; I10 Essential (primary) hypertension; Z79.01 Long term (current) use of anticoagulants; Z79.899 Other long term (current) drug therapy; W18.09XA Striking against other object with subsequent fall, initial encounter
CPT/HCPCS: 70450; 99284; A9270-GY